=== PATIENT | male | born 1940 | race Caucasian/White ===

== ENCOUNTER 2024-09-15 22:13 | Inpatient (IN) | payer OTHER, SELFPAY ==
[2024-09-15] VITALS (9 sets, daily range): BP systolic 103–165; BP diastolic 52–77; PULSE 65–87; BMI 24.8; BMI 24.5
--- NOTE | 2024-09-15 14:41 | ED.GENMED ---
ED Provider Triage
<Suzanna Real GUINEA PIG BREEDER - Last Filed: 09/15/24 14:44>
-
Patient seen by provider in Triage?: Seen in Triage
Attestation: A medical screening examination has been initiated by a qualified medical provider. Based on the assessment performed at this time, it has been determined that an emergent medical condition may exist and the patient has been informed
that further medical evaluation and possible additional diagnostic testing may be needed.
HPI: 83 yo male ex smoker, Afib, HTN COPD presents for 'I felt dizzy, nauseous and my equilibrium is not good.' Sudden onset 30 minutes ago. Turning head side to side, standing up provokes symptoms.
GENERAL: Alert , in no apparent distress
EYE: No visual abnormalities.
NECK: Trachea midline
ENT: No visible abnormalities.
LUNGS: No acute respiratory distress
NEUROLOGICAL: Alert and oriented. Speech clear.
SKIN: Skin intact. No visible changes.
MUSCULOSKELETAL: Moving extremities normally
PSYCH: Normal and appropriate interaction.
This is a medical evaluation conducted in person to initiate diagnostic evaluation and provide initial therapeutics. Please see further documentation by the treating clinician.
History of Present Illness
<Suzanna Real NP - Last Filed: 09/15/24 14:44>
General
Chief Complaint: Dizziness
Time Seen by Provider: 09/15/24 17:53
<Steffen Pearce MD - Last Filed: 09/15/24 19:41>
History of Present Illness
History of Present Illness:
Patient is a 83-year-old male with history of prior CVA, hypertension, hyperlipidemia, prior DE, ex-smoker presenting to the emergency department with dizziness. Patient states that earlier this morning he was not feeling well. He went out to
lunch with his when he had some nausea so he did not eat lunch. They were in the car driving home when patient's noticed an episode of dysarthria word finding difficulty and patient appeared pale. This lasted a few minutes. She then
came to the emergency department for further evaluation. This occurred around 2 PM. It has not occurred since then. Patient has no recollection of this event. He denies any numbness tingling or weakness. No headache. No palpitations. No chest
pain or shortness of breath. He has had prior stroke before as well as a prior heart attack. He denies any known history of arrhythmia.
Past History
<Suzanna Real NP - Last Filed: 09/15/24 14:44>
Past History
ED Past Medical History: Arrthythmia (Atrial fib), CAD, HTN, Hypercholesterolemia, DE and Other (Ureteral calculis)
ED Past Surgical History: Cardiac (Stents)
Social History
Tobacco: Former smoker
Alcohol: None
Drug: None
Personal:
Living: with family
Employment: Retired
Family History
Family History: Hypertension and CAD
Phy Exam
<Steffen Pearce MD - Last Filed: 09/15/24 19:41>
Physical Exam
Physical Exam:
GENERAL: in no acute distress
HEENT: normocephalic, extraocular movements intact, moist oral mucosa
NECK: normal inspection
RESPIRATORY: no respiratory distress, clear to auscultation bilaterally
CARDIOVASCULAR: regular rate and rhythm
ABDOMEN/: soft, non-distended, non-tender to palpation, no rebound or guarding
EXTREMITIES: non-tender, no edema/swelling
NEUROLOGIC: NEUROLOGIC: alert and oriented x 3, cranial nerves II-XII intact, right upper extremity strength 5/5, left upper extremity strength 5/5, right lower extremity strength 5/5, left lower extremity strength 5/5, normal sensation to light
touch, normal omzrcr-ra-[id number] and lwsp-pa-vzve, gait not tested formally
SKIN: warm
Course
<Suzanna Real NP - Last Filed: 09/15/24 14:44>
Orders/Labs/Results
Orders:
Orders
09/15/24 14:44
CT Head W/o Iv Contrast Urgent
Comment:
Reason For Exam: dizzinessm nausea
09/15/24 14:53
Complete Blood Count/With Diff Urgent
Comprehensive Metabolic Panel Urgent
09/15/24 18:24
Electrocardiogram (*1) Urgent
Reason for Study: TIA/Stroke
EKG- Treatment ONCE
09/15/24 19:20
Troponin I Urgent
Abnormal Lab Results
09/15/24
14:53
WBC 12.3 H 10^3/uL
(4.8-10.8)
MCV 98.8 H fL
(80.0-94.0)
MCH 34.9 H pg
(27.0-31.0)
Abs Immat Gran (auto) 0.1 H 10^3/uL
(0-0.05)
Absolute Neuts (auto) 9.5 H 10^3/uL
(1.4-6.5)
Absolute Monos (auto) 1.0 H 10^3/uL
(0.1-0.6)
Neutrophils % 76.8 H %
(42.2-75.2)
Lymphocytes % 13.6 L %
(20.5-51.1)
BUN 23 H mg/dl
(9-20)
Creatinine 1.5 H mg/dL
(0.7-1.3)
Glucose 113 H mg/dl
(70-99)
09/15/24 14:53
09/15/24 14:53
Vital Signs
Initial and Last Documented VS:
Initial Vital Signs
Temp Pulse Resp BP Pulse Ox
97.5 F 72 18 108/77 100
09/15/24 14:42 09/15/24 14:42 09/15/24 14:42 09/15/24 14:42 09/15/24 14:42
Last Documented Vital Signs
Temp Pulse Resp BP Pulse Ox
97.5 F 69 16 103/52 93
09/15/24 14:42 09/15/24 19:00 09/15/24 19:00 09/15/24 19:00 09/15/24 17:14
<Steffen Pearce MD - Last Filed: 09/15/24 19:41>
Orders/Labs/Results
Orders:
Orders
09/15/24 14:44
CT Head W/o Iv Contrast Urgent
Comment:
Reason For Exam: dizzinessm nausea
09/15/24 14:53
Complete Blood Count/With Diff Urgent
Comprehensive Metabolic Panel Urgent
09/15/24 18:24
Electrocardiogram (*1) Urgent
Reason for Study: TIA/Stroke
EKG- Treatment ONCE
09/15/24 19:20
Troponin I Urgent
Abnormal Lab Results
09/15/24
14:53
WBC 12.3 H 10^3/uL
(4.8-10.8)
MCV 98.8 H fL
(80.0-94.0)
MCH 34.9 H pg
(27.0-31.0)
Abs Immat Gran (auto) 0.1 H 10^3/uL
(0-0.05)
Absolute Neuts (auto) 9.5 H 10^3/uL
(1.4-6.5)
Absolute Monos (auto) 1.0 H 10^3/uL
(0.1-0.6)
Neutrophils % 76.8 H %
(42.2-75.2)
Lymphocytes % 13.6 L %
(20.5-51.1)
BUN 23 H mg/dl
(9-20)
Creatinine 1.5 H mg/dL
(0.7-1.3)
Glucose 113 H mg/dl
(70-99)
09/15/24 14:53
09/15/24 14:53
Vital Signs
Initial and Last Documented VS:
Initial Vital Signs
Temp Pulse Resp BP Pulse Ox
97.5 F 72 18 108/77 100
09/15/24 14:42 09/15/24 14:42 09/15/24 14:42 09/15/24 14:42 09/15/24 14:42
Last Documented Vital Signs
Temp Pulse Resp BP Pulse Ox
97.5 F 69 16 103/52 93
09/15/24 14:42 09/15/24 19:00 09/15/24 19:00 09/15/24 19:00 09/15/24 17:14
<Steffen Pearce MD - Last Filed: 09/15/24 19:41>
MDM/Problems Addressed
Differential Diagnosis Includes:
Patient is a 83-year-old man presenting to the emergency department with an episode of dysarthria or word finding difficulty and pale appearing with no recollection of this event. Vitals currently are unremarkable and exam shows no neurodeficits.
Concern for TIA versus cardiac arrhythmia given how short this lasted and how pale he appeared. Blood work obtained prior evaluation shows a slightly elevated WBC. However there are no bands. BMP is notable for slightly elevated creatinine. CT
scan of the head unremarkable. Will obtain EKG and troponin as well. Patient will need admission for further monitoring and evaluation.
<Steffen Pearce MD - Last Filed: 09/15/24 19:41>
*Critical Care Note
Total Time (30-74mins, 75-104mins- exclusive of procedures): Not Applicable
<Steffen Pearce MD - Last Filed: 09/15/24 19:41>
Update Note
Update Note:
On reevaluation patient resting comfortably. He has no further episodes. He remains normal sinus rhythm on the monitor. EKG per my interpretation similar to prior. Troponin pending at this time. Discussed with hospitalist who accepted patient
to their service
ED Attending Note
<Suzanna Real NP - Last Filed: 09/15/24 14:44>
-
Portions of this chart may have been created with voice recognition software.� Occasional wrong word or��sound alike� substitutions may have occurred due to the inherent limitations of voice recognition software.
Discharge Plan
Departure
Patient Disposition: Admit
Date of Disposition: 09/15/24
Time of Disposition: 19:39
Presentation/result/management discussed w/ accepting MD/DO: Hospitalist
Discharge Problem:
Transient neurological symptoms
Prescriptions:
No Action
tamsulosin 0.4 MG capsule
0.4 mg PO DAILY
multivitamin with folic acid [Tab-A-Richard] 1 TABLET tablet
1 tab PO DAILY
Eliquis 5 MG tablet
5 mg PO BID Qty: 120 0RF
Jardiance 10 MG tablet
10 mg PO DAILY Qty: 60 0RF
vitamin E 268 mg (400 unit) Capsule
268 mg PO DAILY
coQ10 (ubiquinol) 100 mg Capsule
100 mg PO DAILY
sacubitril-valsartan [Entresto] 24-26 mg tablet
1 tab PO BID
furosemide 40 MG tablet
40 mg PO DAILY
clopidogrel 75 mg Tablet
75 mg PO DAILY Qty: 30 0RF
diltiazem HCl 120 mg Tablet Extended Release 24 Hr
120 mg PO DAILY
rosuvastatin [Crestor] 20 mg Tablet
20 mg PO QPM
ezetimibe 10 MG tablet
10 mg PO QPM
Referrals:
Andry Wilson MD [Family Provider] -
Interventions
Interventions:
*Risk Screen - Suicide Last Done: 09/15/24 14:42
*General Assessment Last Done: 09/15/24 14:42
*Neglect/Abuse Screening Last Done: 09/15/24 14:42
ED- Fall Risk Assessment Last Done: 09/15/24 17:52
*ED COVID-19 Vaccine History Last Done: 09/15/24 17:32
ED- Neurological Assessment Last Done: 09/15/24 17:52
ED- Cardiac Assessment Last Done: 09/15/24 17:52
Discharge Date and Time
Print Language: DOMINICAN
[2024-09-15 15:26] LABS: % Basophils 0.3 % (0-2); % Eosinophils 0.4 % (0-6); % Immature Granulocytes 0.5 % (0-0.5); % Lymphocytes 13.6 % (20.5-51.1); % Monocytes 8.4 % (1.7-9.3); % Neutrophils 76.8 % (42.2-75.2); Absolute Eosinophils 0.1 10^3/uL (0-0.7); Absolute Immature Granulocytes 0.1 10^3/uL (0-0.05); Absolute Lymphocytes 1.7 10^3/uL (1.2-3.4); Absolute Neutrophils 9.5 10^3/uL (1.4-6.5); Hematocrit 48.7 % (39.0-52.0); Hemoglobin 17.2 g/dL (13.0-18.0); Mean Corp Hgb Conc. 35.3 g/dL (33.0-37.0); Mean Corpuscular Hgb 34.9 pg (27.0-31.0); Mean Corpuscular Volume 98.8 fL (80.0-94.0); Mean Platelet Volume 10.2 fL (7.4-10.4); Nucleated Red Blood Cells % 0 % (-); Platelet Count 209 10^3/uL (130-400); Red Blood Cell Count 4.93 10^6/uL (4.70-6.10); Red Cell Dist. Width 13.1 % (11.5-14.5); White Blood Cell Count 12.3 10^3/uL (4.8-10.8)
[2024-09-15 15:38] LABS: ALT (SGPT) 24 U/L (0-50); AST (SGOT) 32 U/L (17-59); Albumin 4.8 g/dl (3.5-5.0); Alkaline Phosphatase 97 U/L (38-126); Blood Urea Nitrogen 23 mg/dl (9-20); Calcium 10.1 mg/dl (8.4-10.2); Carbon Dioxide 28 mmol/L (22-30); Chloride 101 mmol/L (98-107); Glucose 113 mg/dl (70-99); Potassium 4.7 mmol/L (3.5-5.1); Sodium 141 mmol/L (135-145); Total Bilirubin 0.8 mg/dl (0.2-1.3); Total Protein 7.9 g/dl (6.3-8.2); eGFR 45.62
--- NOTE | 2024-09-15 17:38 | EDRN ---
Pt says he felt dizzy and he went out to get something to eat with his . Pt's says pt became incoherent and his eyes would not focus and his head went side to side for about 30 seconds. Pt felt nauseous and dizzy after this episode which
happened around [id number]. Pt denies cp, sob, abd pain, vomiting, urinary issues, weakness, headache. No dizziness now.
[2024-09-15 20:03] LABS: Troponin I 0.041 ng/ml
--- NOTE | 2024-09-15 21:45 | HPS.HSE ---
Addendum entered and electronically signed by Mark Fuchs MD 09/16/24 11:45:
I saw and examined the patient.
The HEALTH INSPECTOR or PA's note was reviewed and I agree with the note.
Comment:
83M�prior CVA on Eliquis and Plavix , HTN on Frusemide and Diltiazem,� prior OR, CAD with stents on Entresto , Jardiance� HLD on Rosuvastatin a/w�transient AMS with�dysarthria, word finding difficulty and pale colored for few minutes.�Suspect near
syncope vs. syncope� Diff etiology suspect postural hypotension due to volume contraction. KIRA due to volume contraction due to over diuresis.�Marginally� hypotensive for HX HTN.�Hold Frusemide, Entresto. To continue Diltiazem with hold index.
Gentle IV NS total 500 cc . Observe BP. .�IP TLM. Neuro consult
Original Note:
Family Physician
-
Family Physician: Andry Wilson
Chief Complaint
-
Change in mental status
History of Present Illness
Patient is an 83 y/o male past medical history of ASCVD, CHF, A-fib, and HTN who present with change in mental status. Patient reports not feeling well earlier today. He notes he went out to lunch with his but didnt eat anything because he
felt a little nauseous. While in the car patient developed acute onset of a change in mental status. noted patient's eyes appears glazed over, and he was having difficulty with his speech. Episode lasted a minute or so, and patient does not
recall the events. Patient denies any symptoms at the present time, and feels as though he is back to baseline.
Medical History
Past Medical History
Past Medical History: Reports Other
Additional Past Medical History:
Coronary Artery Disease s/p CABG (1990) and Stent(2012)
Peripheral Arterial Disease s/p RLE Stent (2022)
Chronic Heart Failure with Recovered EF
Paroxysmal Atrial Fibrillation
Essential Hypertension
Hyperlipidemia
BPH
Past Surgical History: Reports Other
Additional Past Surgical History:
CABG
Bilateral Hip Replacement
Left Inguinal Hernia Repair
Social History
Tobacco: Former Smoker (Quit at age 32)
Alcohol: Daily (Patient reports one beer per day, and he did drink one prior going out today)
Personal:
Living: With Family
Family History
Family History: Not pertinent
Allergies / Home Medications
Allergies reflects when Allergies were last updated in [facility].
Home Medications with original date entered in [facility]
Allergy/Medication List:
Allergies
Allergy/AdvReac Type Severity Reaction Status Date / Time
Cholinesterase Allergy can't wake Verified 09/15/24 14:40
Inhibitor(Carbamate) up
Jwpuuer-VIB-QtL Reductase Allergy suicidal Verified 09/15/24 14:40
Inhibitor
[Fnnfycd-Yha-Wzi Reductase
Inhibitor]
succinylcholine Allergy can't wake Verified 09/15/24 14:40
up
Home Medications
tamsulosin 0.4 mg capsule 0.4 mg PO DAILY Urinary issue 03/11/16
multivitamin with folic acid 400 mcg tablet (Tab-A-Richard) 1 tab PO DAILY Supplement 08/28/21
apixaban 5 mg tablet (Eliquis) 5 mg PO BID Blood clot prevention/tx #120 tabs 09/02/21
empagliflozin 10 mg tablet (Jardiance) 10 mg PO DAILY Heart Failure #60 tabs 09/02/21
coQ10 (ubiquinol) 100 mg capsule 100 mg PO DAILY Supplement 11/28/22
furosemide 40 mg tablet 40 mg PO DAILY Fluid retention/Swelling 11/28/22
sacubitril 24 mg-valsartan 26 mg tablet (Entresto) 1 tab PO BID Blood pressure 11/28/22
vitamin E 268 mg (400 unit) capsule 268 mg PO DAILY Supplement 11/28/22
clopidogrel 75 mg tablet 75 mg PO DAILY #30 tabs 12/01/22
diltiazem HCl 120 mg tablet,extended release 24 hr 120 mg PO DAILY 09/15/24
ezetimibe 10 mg tablet 10 mg PO QPM High cholesterol 09/15/24
rosuvastatin 20 mg tablet (Crestor) 20 mg PO QPM 09/15/24
Review of Systems
-
A 12 point ROS was completed and negative except as noted: Yes
Constitutional: Denies Fever or Chills
Cardiac: Denies Chest Pain or Palpitations
Abdomen/GI: Reports Nausea; Denies Abdominal Pain or Vomiting
Physical Exam
Vital Signs
Vital Signs
Temp Pulse Resp BP Pulse Ox
97.5 F 67 16 119/57 96
09/15/24 14:42 09/15/24 21:00 09/15/24 21:00 09/15/24 21:00 09/15/24 21:00
Physical Exam
General: Comfortable and Conversant
HEENT: NormoCephalic, Anicteric and Atraumatic
Respiratory: Clear and Non Labored Respirations
Cardiac: S1/S2 and Regular Rhythm
GI: Soft and Non Tender
Rectal: Deferred by Provider
Musculoskeletal: No Clubbing, No Cyanosis and No Edema
Skin: Warm and Dry
Neuro: Awake, Alert, Oriented and No Motor Deficits; No Slurred Speech or Facial Droop
Psych: Calm
Laboratory Results
-
09/15/24 14:53
09/15/24 14:53
Laboratory Results
Total Bilirubin 0.8 mg/dl (0.2-1.3) 09/15/24 14:53
AST 32 U/L (17-59) 09/15/24 14:53
ALT 24 U/L (0-50) 09/15/24 14:53
Alkaline Phosphatase 97 U/L (38-126) 09/15/24 14:53
Troponin I 0.041 ng/ml H* 09/15/24 19:20
Data Reviewed
-
Lab Data: Labs Reviewed by me
Impression/Plan
-
Acute Kidney Injury, suspect related to volume depletion
-Give small amount of IVFs overnight
-Hold Lasix and Entrestro
-Recheck labs in AM
Change in Mental Status, likely Syncope/Near Syncope
-Check orthostatic VS
-Monitor on Telemetry
Elevated Troponin, likely non-ischemic myocardial injury due to hypotension
-Consult Cardiology
-Trend troponin
Coronary Artery Disease s/p CABG (1990) and Stent(2012)
Peripheral Arterial Disease s/p RLE Stent (2022)
-Continue Plavix
Chronic Heart Failure with Recovered EF
-Lasix and Entresto on Hold
-Monitor Is&Os and Daily Weights
Paroxysmal Atrial Fibrillation
-Continue Eliquis for anticoagulation
-Continue Diltiazem with hold parameters
Hyperlipidemia
-Continue Crestor and Zetia
BPH
-Continue Flomax
DVT proph: Eliquis
Code Status: Full Code
[2024-09-15] MEDS: NSS 500 IV (22:41)
[2024-09-15 23:22] LABS: Troponin I 0.041 ng/ml
--- NOTE | 2024-09-15 23:45 | PTCARENOTE ---
Receive pt from ER. Pt alert oriented X3, calm and cooperative, in no distress. Pt assisted X1 to his bed from the stretcher, no gait issues. Pt oriented to the room, call quinn within reach. Pt on NSR on telemonitor. Pt denies headache, dizziness,
or speech difficulty. FX=638/60, HR=69, T=97.5, SpO2=94% on RA. IVFs of NSS 500mL infusing at 40mL/hr. Pt advised to call before getting OOB as a precaution. Will continue to monitor the pt.
[2024-09-16 00:13] VITALS: BMI 24.5
[2024-09-16 03:33] VITALS: BP 123/64
[2024-09-16 06:00] VITALS: BMI 24.5
--- NOTE | 2024-09-16 07:35 | W.PN.HOSP.TC ---
Today's Communication/Plan
-
Discharge today
Assessment / Plan
Assessment / Plan
Physical Exam
General: Not in acute distress
HEENT: Normocephalic
Respiratory: Some decreased breath sounds on the right, but otherwise clear
Cardiac: S1/S2 and Regular Rhythm
GI: Soft and Non Tender. Positive bowel sounds.
Musculoskeletal: No Cyanosis and No Edema
Skin: Warm and Dry
Neuro: Awake, Alert, Oriented and No Motor Deficits
Psych: Calm
Assessment/Plan
83 y/o male past medical history of ASCVD, CHF, A-fib, and HTN who presented with change in mental status. Patient reports not feeling well earlier on the day of presentation. He notes he went out to lunch with his but didn't eat anything
because he felt a little nauseous. While in the car patient developed acute onset of a change in mental status. noted patient's eyes appears glazed over, and he was having difficulty with his speech. Episode lasted a minute or so, and
patient does not recall the events. Patient denies any symptoms at the present time, and feels as though he is back to baseline.
Acute Kidney Injury - IMPROVED - suspected related to volume depletion
-Received some intravenous fluids
-Hold Lasix and Entrestro -- but plan to discharge on Lasix 20mg prn weight gain or 3 pounds in 1 day or 5 pounds in 1 week
-Recheck labs in AM
Change in Mental Status - IMPROVING - likely secondary to vasovagal vs. orthostatic syncope
History of CVA
Orthostatic Hypotension
-Check orthostatic VS
-Monitor on Telemetry
-Cardio and neuro consulted, appreciate their evaluation and recommendations
-I communicated today with on-call neurologist via [employer], his impression was that the reason for patient's symptoms was orthostatic syncope, and it is okay to discharge the patient today, from a neurology
standpoint
Elevated Troponin, likely non-ischemic myocardial injury due to hypotension
-Consult Cardiology
-Trend troponin
Coronary Artery Disease s/p CABG (1990) and Stent(2012)
History of PR
Peripheral Arterial Disease s/p RLE Stent (2022)
Right subclavian stenosis
-Follows with [facility] lo[facility] Dr. Hess
-Continue Plavix
-Blood pressures should be done on L arm, b/c R subclavian stenosis
RBBB/LAFB
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
-Outpatient Mcot monitor.
Chronic Heart Failure with Recovered EF
HFpEF
-Lasix and Entresto on Hold -- plan to discharge on Lasix 20mg prn weight gain or 3 pounds in 1 day or 5 pounds in 1 week
-Monitor Is&Os and Daily Weights
-Hold Entresto and CBC cardiology will arrange follow up in office next week to recheck BP and consider restarting medication.
Paroxysmal Atrial Fibrillation
-Continue Eliquis for anticoagulation
-Continue Diltiazem with hold parameters
COPD?
Ex-Smoker
Hypertension?
Hyperlipidemia
-Continue Crestor and Zetia
BPH
-Continue Flomax
DVT Prophylaxis: Eliquis
Code Status: Full Code
More than 30 minutes spent in discharge including
Final examination of the patient
Summarizing hospital stay
Instructions for continuing care to all relevant caregivers
Preparation of discharge records, prescriptions, and referral forms
Total time spent (in minutes): 41
Anticipated Discharge: Today
Subjective/Interval History
-
Date of Service: September 16, 2024
Patient was seen and examined. He denied any dizziness, chest pain or shortness of breath.
Objective Data
-
Labs:
Laboratory Results
09/16/24
06:34
WBC Pending
Hgb Pending
Hct Pending
Plt Count Pending
Sodium Pending
Potassium Pending
Chloride Pending
Carbon Dioxide Pending
BUN Pending
Creatinine Pending
Glucose Pending
Calcium Pending
Vital Signs:
Vital Signs
Temp Pulse Resp BP Pulse Ox
98.5 F 78 20 123/64 94
09/16/24 03:33 09/16/24 03:33 09/16/24 03:33 09/16/24 03:33 09/16/24 03:33
I&O
09/15/24 09/16/24 09/17/24
06:59 06:59 06:59
Intake Total 120 / 120
Output Total 550 / 550
Balance -430 / -430
[2024-09-16 07:38] LABS: Hematocrit 45.4 % (39.0-52.0); Hemoglobin 15.9 g/dL (13.0-18.0); Mean Corpuscular Hgb 34.8 pg (27.0-31.0); Mean Corpuscular Volume 99.3 fL (80.0-94.0); Mean Platelet Volume 10.7 fL (7.4-10.4); Platelet Count 171 10^3/uL (130-400); Red Blood Cell Count 4.57 10^6/uL (4.70-6.10); Red Cell Dist. Width 13.2 % (11.5-14.5)
[2024-09-16 07:48] LABS: Blood Urea Nitrogen 21 mg/dl (9-20); Calcium 8.7 mg/dl (8.4-10.2); Carbon Dioxide 25 mmol/L (22-30); Chloride 106 mmol/L (98-107); Estimated Creatinine Clearance 47 ml/min; Glucose 92 mg/dl (70-99); Magnesium 2.4 mg/dl (1.6-2.3); Potassium 4.4 mmol/L (3.5-5.1); Sodium 140 mmol/L (135-145); eGFR > 60.00
--- NOTE | 2024-09-16 09:07 | CON.CAR ---
Addendum entered and electronically signed by Elias Le MD 09/16/24 13:21:
83-year-old gentleman, followed by Dr. Dyson with coronary disease, PAD with right subclavian stenosis, HFpEF, conduction disease with right bundle branch block and left anterior fascicular block along with paroxysmal atrial fibrillation presented
with presyncope. Patient's current altered mental status/presyncope is likely related to vasovagal as it has completely resolved. Patient appears to be euvolemic with unchanged significant symptoms. Possibility of A-fib and conversion pauses was
entertained and we are planning on obtaining outpatient Mcot monitor. EKG shows no sign of abnormalities then baseline conduction disease.
Addendum entered and electronically signed by Sonja Mcneil NP 09/16/24 10:03:
add Dr. Le to document
Original Note:
Consultation
Consultation Request
Date/Time Consultation Requested: 09/16/2024729
Date/Time Consultation Performed: 09/16/2024 0745
Requesting Provider: Dr. Antoine
Performing Provider: Dr. Le
Reason for Consultation: change in mental status
Medical History
-
Chief Complaint: buasea, chnage in mental status, hypotension
History of Present Illness:
83 y/o pt known to DR. Hess with CAD , HFpEF, PAD ( R subclavian stenosis, [employer]), RBBB, LAFB, PAF. He was sitting in the car yesterday starting to eat lunch with his . He did not feel well. He has mild nausea and general feeling of unwell.
His status he then had a glazed over look and was not able to speak to her. He did not remember that part. He recalls coming to the ER. Still had some nausea and just did not feel well. He denies CP, palps, SOB with the event. He woke that am
just not feeling himself as well. The days prior states he was feeling fine.
Past Medical History
Past Medical History: Other (CAD/CAB, PAD, hyperlipidemia, RBBB, LAFB, TIA, lyme, HFpEF)
Past Surgical History: Other (renal stent, bilat BARRERA,cataract surgery,CABG 1999)
Social History
Tobacco: Former Smoker
Personal:
Living: With Family
Family History
Family History: Reviewed & Not Pertinent
Allergies / Home Medications
Allergy/AdvReac Type Severity Reaction Status Date / Time
Cholinesterase Allergy can't wake Verified 09/15/24 14:40
Inhibitor(Carbamate) up
Hkbiwbz-TPU-IqC Reductase Allergy suicidal Verified 09/15/24 14:40
Inhibitor
[Bbaejzq-Pgs-Dgb Reductase
Inhibitor]
succinylcholine Allergy can't wake Verified 09/15/24 23:08
up
�Medication �Instructions �Recorded �Confirmed �Type
tamsulosin 0.4 mg capsule 0.4 mg PO DAILY Urinary issue 03/11/16 09/15/24 History
multivitamin with folic acid 400 1 tab PO DAILY Supplement 08/28/21 09/15/24 History
mcg tablet (Tab-A-Richard)
apixaban 5 mg tablet (Eliquis) 5 mg PO BID Blood clot 09/02/21 09/15/24 Rx
prevention/tx #120 tabs
empagliflozin 10 mg tablet 10 mg PO DAILY Heart Failure #60 09/02/21 09/15/24 Rx
(Jardiance) tabs
coQ10 (ubiquinol) 100 mg capsule 100 mg PO DAILY Supplement 11/28/22 09/15/24 History
furosemide 40 mg tablet 40 mg PO DAILY Fluid 11/28/22 09/15/24 History
retention/Swelling
sacubitril 24 mg-valsartan 26 mg 1 tab PO BID Blood pressure 11/28/22 09/15/24 History
tablet (Entresto)
vitamin E 268 mg (400 unit) capsule 268 mg PO DAILY Supplement 11/28/22 09/15/24 History
clopidogrel 75 mg tablet 75 mg PO DAILY #30 tabs 12/01/22 09/15/24 Rx
diltiazem HCl 120 mg 120 mg PO DAILY 09/15/24 09/15/24 History
tablet,extended release 24 hr
ezetimibe 10 mg tablet 10 mg PO QPM High cholesterol 09/15/24 09/15/24 History
rosuvastatin 20 mg tablet (Crestor) 20 mg PO QPM 09/15/24 09/15/24 History
Review of Systems
-
History Source: Patient
Constitutional: No Symptoms
EENT: No Symptoms
Respiratory: No Symptoms
Cardiac: No Symptoms
Abdomen/GI: No Symptoms
Musculoskeletal: No Symptoms
Neurological: No Symptoms
Physical Exam
Vital Signs
Temp Pulse Resp BP Pulse Ox
98.5 F 78 20 123/64 94
09/16/24 03:33 09/16/24 03:33 09/16/24 03:33 09/16/24 03:33 09/16/24 03:33
Lab Results
09/16/24 06:34
09/16/24 06:34
Troponin I 0.041 ng/ml H* 09/15/24 22:31
Physical Exam
General: Well Developed, Well Nourished and No Apparent Distress
HEENT: Normocephalic and Moist Mucous Membranes
Respiratory: Clear (decreased R base)
Cardiac: S1/S2 and Regular Rhythm
Breast: Deferred by me
GI: Soft, Non Tender and Normal Bowel Sounds
Musculoskeletal: No Edema
Skin: Warm and Dry
Neuro: AO x 3
Psych: Calm
Impression / Plan
-
Change in mental status:
-pt with low BP on arrival
-entresto and lasix held
-creat was 1.5 on admit as well, back down to 1.1
-Pt feels better this am.
-tele stable - no heart block or pauses.
-check orthostatics
-troponin was flat at 0.041 , no CP or EKG changes.
Chronic HFpEF:
-plan to only d/c on lasix 20mg prn weight gain or 3 pounds in 1 day or 5 pounds in 1 week
-hold entresto and will arrange follow up in office next week to recheck BP and consider restarting medication.
RBBB/LAFB:
-noted in the past.
-no prior syncope, tele has been stable
-consider OP monitor
PAF:
-in NSR
-on eliquis and diltiazem
PAD:
-Notes indicate BP's should be done on L arm, b/c R subclavian stenosis.
-
Data Reviewed
-
Radiology: Image Personally Visualized and interpreted (NSR 70 bpm RBBB)
Medical Tests (Nuc Med, Echo etc): Report Reviewed by me (Echo 12/25/21 Normal biventricular size and systolic function without regional wall motion abnormality. Mild to moderate mitral regurgitation.)
Labs: Labs Reviewed by me and Discussed with Physician
[2024-09-16 09:30] VITALS: BP 115/53; BP 125/64; BP 127/63; PULSE 83; PULSE 97; PULSE 98
[2024-09-16] MEDS: FLOMAX 0.4 MG PO (10:10)
[2024-09-16] MEDS: FARXIGA 10 MG PO (10:10)
[2024-09-16] MEDS: ELIQUIS 5 MG PO (10:10)
[2024-09-16] MEDS: PLAVIX 75 MG PO (10:11)
[2024-09-16] MEDS: CARDIZEM CD 120 MG PO (10:11)
--- NOTE | 2024-09-16 10:19 | CON.NEURO ---
Neuro Assessment/Plan
Assessment
Abrupt onset of change of speech associated with pallor and newly diagnosed orthostatic hypotension
Despite the patient's prior stroke in 2011, this event most likely represents an event
Plan
continue to follow orthostatic blood pressures
no change to Apixaban and Clopidogrel
No clear indication patient would benefit from MRI imaging of the brain as the patient is on maximal therapy against stroke prevention
Provide abdominal binder
Patient should have at home orthostatic blood pressure follow up evaluations
Continue Ezetimibe
Check blood work for additional metabolic abnormalities
Will follow as needed
Consultation
Order
Date of Consultation: 09/16/24
Requesting Provider: Hospitalist
Reason for Consult: Change in mental status
Subjective/Objective
Subjective Data
Date of Service: September 16, 2024
Adapted from the neurologist note 04/2012:
'71-year-old male with a history of coronary artery disease and hypertension who came over to [facility] due to symptoms of dizziness, gait unsteadiness and some double
vision. I was consulted to see him with regards to these symptoms, specifically with a question of a stroke. The patient tells me that yesterday afternoon at around 2:00 p.m. while he was riding in a car, he had some vague visual symptoms. Those
resolved. This morning at around 3:00 a.m. he noticed some headache and dizziness. When he tried to get up he noticed that he was unsteady on his feet. He went back to bed and at 5:00 a.m. he noticed those symptoms were still there. He also noticed
some diplopia. He had no one-sided weakness, no numbness or tingling. No speech difficulty. He has no history of similar episodes. No history of strokes. Of note, he did have nausea and he actually vomited at home. He currently feels that those
symptoms are still there.
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
There is no evidence for an intracranial bleed.
IMPRESSION: This is a 71-year-old male with past history as above who
presents with a clinical picture of a brainstem stroke. I wonder whether or
not he has a basilar artery thrombosis. He is not a candidate for IV
thrombolysis at this time due to long duration of his symptoms.
PLAN: I will order a CT angiogram stat on the patient. I discussed the case
with Dr. Butler of Neurosurgery at [place]. At this time, there is no
indication to put him in for a CT perfusion. If the CT angiogram does show
basilar artery thrombosis, I reji transfer the patient stat to Neurosurgery at
[place] for consideration of endovascular intervention.'
MRI of brain at that time showed right occipital stroke with punctate change in left occipital lobe. No acute occlusion of vertebral arteries, according to medical records.
~~~~
Yesterday (09/15/2024)
Patient went out to lunch with his when he had some nausea and dizziness so he did not eat lunch. They were in the car driving home when patient's noticed an episode of dysarthria word finding difficulty and patient appeared pale. This
lasted a minute. This occurred around 1400. Patient has no recollection of this event absence of recall between being in car and alerting in the parking lot of ED at [facility]. He then indicated that he wished to present to this
hospital instead and presented to this ED.
Episode was described on the contrary as mumbling by the patient while speaking, although again, the patient reported no recollection of the event. No other associated symptoms.
Objective Data
Vital Signs
Temp Pulse Resp BP Pulse Ox
36.4 C 74 18 126/65 96
09/16/24 09:30 09/16/24 10:11 09/16/24 09:30 09/16/24 10:11 09/16/24 09:30
Lab Results
09/16/24 06:34
09/16/24 06:34
Sodium 140 mmol/L (135-145) 09/16/24 06:34
Potassium 4.4 mmol/L (3.5-5.1) 09/16/24 06:34
BUN 21 mg/dl (9-20) H 09/16/24 06:34
Glucose 92 mg/dl (70-99) 09/16/24 06:34
Calcium 8.7 mg/dl (8.4-10.2) 09/16/24 06:34
Patient Allergies
Cholinesterase Inhibitor(Carbamate) Allergy (Verified 09/15/24 14:40)
can't wake up
Epvwswb-OEQ-SyZ Reductase Inhibitor [Smsnjzp-Tnt-Kks Reductase Inhibitor] Allergy (Verified 09/15/24 14:40)
suicidal
succinylcholine Allergy (Verified 09/15/24 23:08)
can't wake up
Review of Systems
-
History Source: Patient
All other systems: Reviewed and negative
EENT: Negative Decreased Vision or Swallowing Difficulty
Respiratory: Negative Trouble Breathing
Cardiac: Negative Chest Pain
Abdomen/GI: Negative Incontinence of Stool
Genitourinary: Negative Incontinence
Musculoskeletal: Negative Back Pain or Neck Pain
Neuro: Negative Dizzy or Headache
Physical Exam
-
General: No Apparent Distress and Appears Stated Age
Eyes: OU Absent Papilledema, Round OU, [place] Conjunctivae and No Ptosis
HEENT: Anicteric and Moist Mucous Membranes
Neck: Full Range of Motion
Respiratory: No Dyspnea
Cardiac: No JVD
GI: Non-distended
Skin: Unremarkable
Extremities: No Clubbing, No Cyanosis and No Edema
Psych: Intact Judgement/Insight
Extended Neurological Exam
Mood & Affect: Mood Unremarkable and Affect Unremarkable
Attention Span & Concentration: Awake, Alert, Interactive and No Difficulty with 2 Step Request
Memory: Able to Recall (Location, month) and Reduced (For year which she described as 1924 initially)
Tremor: Hand Tremor Absent and Head Tremor Absent
Speech: Quality Unremarkable and Quantity Unremarkable
Cranial Nerve II: Left Eye: Pupillary Reactivity Unremarkable, Pupillary Size Unremarkable and Visual López Intact
Cranial Nerve II: Right Eye: Pupillary Reactivity Unremarkable, Pupillary Size Unremarkable and Visual López Intact
Cranial Nerves III, IV, : Extraocular Movement: Extraocular Movement Full in all Directions
Cranial Nerve VII: Facial Symmetry: Normal Facial Symmetry
Cranial Nerve VIII: Hearing: Unremarkable Hearing to Normal Conversational Volume
Cranial Nerves IX, X: Palate Movement: Palate Elevation Symmetric
Cranial Nerve XI: Shoulder Shrug: Unremarkable
Cranial Nerve XII: Tongue Protusion: Midline
Muscle Strength, Overall: Full Throughout
Muscle Bulk & Tone: Bulk Unremarkable and Tone Unremarkable
Pronator Drift: No Drift in Upper Extremities
Deep Tendon Reflexes: Trace Throughout
Touch Sensation: Unremarkable
Coordination: Lhcggz-ihga-yulkhu Testing Unremarkable
Babinski Sign: Absent Bilaterally
Data Reviewed
-
CT Head: Report Reviewed
Orthostatic Testing: Ordered and Report Reviewed
Labs: Ordered and Report Reviewed
Reviewed with: Physician and Patient
Old Records: Summarized
Medications
-
Active Medications
Generic Name Dose Route Start Last Admin
Trade Name Freq PRN Reason Stop Dose Admin
Acetaminophen 650 mg 09/15/24 23:01
Acetaminophen 325 Mg Tablet PO 10/13/24 23:00
Q4HPRN PRN
mild pain/ fever>100.5F
Apixaban 5 mg 09/16/24 08:00 09/16/24 10:10
Apixaban (Eliquis) 5 Mg Tablet PO 10/14/24 07:59 5 mg
BID YARITZA Administration
Clopidogrel Bisulfate 75 mg 09/16/24 08:00 09/16/24 10:11
Clopidogrel 75 Mg Tablet PO 10/14/24 07:59 75 mg
DAILY YARITZA Administration
Dapagliflozin 10 mg 09/16/24 08:00 09/16/24 10:10
Dapagliflozin (Farxiga) 10 Mg Tablet PO 10/14/24 07:59 10 mg
DAILY YARITZA Administration
Diltiazem HCl 120 mg 09/16/24 08:00 09/16/24 10:11
Diltiazem 120 Mg Extended Release (24 H) Capsule PO 10/14/24 07:59 120 mg
DAILY YARITZA Administration
Ezetimibe 10 mg 09/16/24 18:00
Ezetimibe (Zetia) 10 Mg Tablet PO 10/14/24 17:59
QPM YARITZA
Sodium Chloride 500 mls @ 40 mls/hr 09/15/24 22:00 09/15/24 22:41
Nss IV 09/16/24 10:29 500 mls
[id number] YARITZA Administration
Rosuvastatin Calcium 20 mg 09/16/24 18:00
Rosuvastatin (Crestor) 20 Mg Tablet PO 10/14/24 17:59
QPM YARITZA
Sodium Chloride 0 flush 09/15/24 21:00
Sodium Chloride 0.9% (Flush) Syringe IV 10/13/24 20:59
PER PROTOCOL YARITZA
Tamsulosin HCl 0.4 mg 09/16/24 08:00 09/16/24 10:10
Tamsulosin 0.4 Mg Capsule PO 10/14/24 07:59 0.4 mg
DAILY YARITZA Administration
Home Medications
�Medication �Instructions �Recorded
tamsulosin 0.4 mg capsule 0.4 mg PO DAILY Urinary issue 03/11/16
multivitamin with folic acid 400 1 tab PO DAILY Supplement 08/28/21
mcg tablet (Tab-A-Richard)
apixaban 5 mg tablet (Eliquis) 5 mg PO BID Blood clot 09/02/21
prevention/tx #120 tabs
empagliflozin 10 mg tablet 10 mg PO DAILY Heart Failure #60 09/02/21
(Jardiance) tabs
coQ10 (ubiquinol) 100 mg capsule 100 mg PO DAILY Supplement 11/28/22
furosemide 40 mg tablet 40 mg PO DAILY Fluid 11/28/22
retention/Swelling
sacubitril 24 mg-valsartan 26 mg 1 tab PO BID Blood pressure 11/28/22
tablet (Entresto)
vitamin E 268 mg (400 unit) capsule 268 mg PO DAILY Supplement 11/28/22
clopidogrel 75 mg tablet 75 mg PO DAILY #30 tabs 12/01/22
diltiazem HCl 120 mg 120 mg PO DAILY 09/15/24
tablet,extended release 24 hr
ezetimibe 10 mg tablet 10 mg PO QPM High cholesterol 09/15/24
rosuvastatin 20 mg tablet (Crestor) 20 mg PO QPM 09/15/24
Past History
Past History
ED Past Medical History: Arrthythmia (Atrial fib), CAD, CVA (2012 right occipital), HTN, Hypercholesterolemia, NE and Other (Ureteral calculis, bilateral renal stenosis, TIA 2011)
ED Past Surgical History: Cardiac (Stents 2012, CABG 1989), Orthopedic (R total hip replacement, L5-S1 epidural steroids) and Other (herniorrhaphy)
Social History
Tobacco: Former smoker
Alcohol: None
Drug: None
Personal:
Living: with family
Employment: Retired
Family History
Family History: Hypertension and CAD
--- NOTE | 2024-09-16 10:24 | CM ---
Patient admitted from home. Met in room. He reports he is independent at home. He has but does not use rolling walker and cane.He lives with in one level home with 3 steps to enter.
PCP Dr. Wilson
Pharmacy: [facility]
Plan: home no needs.
[2024-09-16 11:32] VITALS: BP 137/65
[2024-09-16 11:36] LABS: HDL Cholesterol 48 mg/dl; LDL Cholesterol, Calculated 99 mg/dl; Total Cholesterol 161 mg/dl (50-199); Triglyceride 74 mg/dl (10-149); Very Low Density Lipoprotein 14 mg/dl (0-30)
--- NOTE | 2024-09-16 13:00 | PTCARENOTE ---
Abdominal binder in place per orders.
[2024-09-16 13:08] LABS: Erythrocyte Sed Rate 11 mm/hour (0-20)
[2024-09-16 14:44] LABS: Folate > 20.0 ng/ml (2.76-20); Vitamin B12 762 pg/ml (239-931)
[2024-09-16 15:18] VITALS: BP 121/69
[2024-09-16] MEDS: CRESTOR 20 MG PO (17:42)
[2024-09-16] MEDS: ZETIA 10 MG PO (17:42)
[2024-09-16 18:19] VITALS: BP 138/64
== END 2024-09-16 19:02 | disposition home or self-care (01) | DRG 683 ==
LOC: 4 EAST ACU 22:13
PROVIDERS: Physician Assistant Medical; Registered Nurse; ADMITTING PHYSICIAN Internal Medicine; ATTENDING PHYSICIAN Hospitalist; CONSULT PHYSICIAN Internal Medicine Cardiovascular Disease; CONSULT PHYSICIAN Psychiatry & Neurology Neurology; EMERGENCY PHYSICIAN Student in an Organized Health Care Education/Training Program; FAMILY PHYSICIAN Family Medicine
DX: N17.9 Acute kidney failure, unspecified (principal); I45.2 Bifascicular block; I50.32 Chronic diastolic (congestive) heart failure; I5A Non-ischemic myocardial injury (non-traumatic); I11.0 Hypertensive heart disease with heart failure; E78.00 Pure hypercholesterolemia, unspecified; J44.9 Chronic obstructive pulmonary disease, unspecified; I95.1 Orthostatic hypotension; I25.10 Atherosclerotic heart disease of native coronary artery without angina pectoris; N40.0 Benign prostatic hyperplasia without lower urinary tract symptoms; I73.9 Peripheral vascular disease, unspecified; I70.8 Atherosclerosis of other arteries; I48.0 Paroxysmal atrial fibrillation; Z96.643 Presence of artificial hip joint, bilateral; I25.2 Old myocardial infarction; Z86.73 Personal history of transient ischemic attack (TIA), and cerebral infarction without residual deficits; Z95.5 Presence of coronary angioplasty implant and graft; Z82.49 Family history of ischemic heart disease and other diseases of the circulatory system; Z87.891 Personal history of nicotine dependence; Z79.01 Long term (current) use of anticoagulants; Z79.84 Long term (current) use of oral hypoglycemic drugs; Z79.02 Long term (current) use of antithrombotics/antiplatelets; Z95.1 Presence of aortocoronary bypass graft; Z88.8 Allergy status to other drugs, medicaments and biological substances
CPT/HCPCS: 70450; 80048; 80053; 80061; 82607; 82728; 82746; 83735; 84443; 84484; 85025; 85027; 85652; 93005; 99285

== ENCOUNTER → 2024-10-26 10:00 | Outpatient (REF) | payer OTHER, SELFPAY | LOC: RAD 10:00 | PROVIDERS: ATTENDING PHYSICIAN Surgery Vascular Surgery; FAMILY PHYSICIAN Family Medicine | DX: I77.9 Disorder of arteries and arterioles, unspecified (principal) | CPT/HCPCS: 93922; 93925 ==

== ENCOUNTER 2025-05-23 08:13 | Outpatient (RCR) | payer OTHER, SELFPAY | END 2025-05-23 08:50 | disposition home or self-care (01) | LOC: ROT 08:13 | PROVIDERS: ATTENDING PHYSICIAN Family Medicine | DX: Z02.4 Encounter for examination for driving license (principal) ==